=== PATIENT | female | born 1965 | race Caucasian/White ===

== ENCOUNTER 2016-12-20 08:25 | Inpatient (IN) | payer OTHER ==
[~2016-12-20] VITALS: Ht 157.5 cm; Wt 52.6 kg
[2016-12-20 10:10] LABS: microscopic required? NO
[2016-12-20 10:11] LABS: ALBUMIN 4.4 g/dL (3.4-5.0); ALKALINE PHOSPHATASE 82 U/L (46-116); ALT/SGPT 21 U/L (14-59); AMYLASE 45 U/L (25-115); AST/SGOT 17 U/L (15-37); BILIRUBIN TOTAL 0.6 mg/dL (0.20-1.00); CARBON DIOXIDE 27.4 mmol/L (21-32); CHLORIDE SERUM 103 mmol/L (98-107); CHOLESTEROL 196 mg/dL (<200); CREATININE SERUM 0.9 mg/dL (0.6-1.0); GFR1 > 60 mL/min; GLUCOSE SERUM 75 mg/dL (74-106); SODIUM SERUM 140 mmol/L (136-145); T4(THYROXINE) 7.8 ug/dL (4.7-13.3); TOTAL PROTEIN, SERUM 7.6 g/dL (6.4-8.2)
[2016-12-20 10:15] LABS: CALCIUM 9.7 mg/dL (8.5-10.1); HDL CHOLESTEROL 103 mg/dL (40-60); LIPASE 179 IU/L (73-393)
[2016-12-20 10:22] LABS: BASOPHIL % 0.4 % (0-2); PLATELET COUNT 261 x10^3mcL (130-400); RED CELL DISTRIBUTION WIDTH 13.3 % (11.5-14.5)
[2016-12-20 10:25] LABS: UA SPECIFIC GRAVITY 1.015 (1.005-1.035); urine erythrocyte NEGATIVE (NEGATIVE)
[2016-12-20 10:38] LABS: AMPHETAMINE QUAL UR NONE DETECTED (NEG <=1000)
[2016-12-20 14:09] LABS: MAGNESIUM 1.9 mg/dL (1.8-2.4)
[2016-12-20 14:19] LABS: T3 TOTAL 1.02 ng/mL
[2016-12-20 14:20] LABS: FREE T4 1.13 ng/dL (0.76-1.46); FREE THYROXINE INDEX 2.9 ug/dL (1.4-4.5); T4(THYROXINE) 7.6 ug/dL (4.7-13.3)
[2016-12-20] MEDS ORDERED: LISINOPRIL2.5 MG (15:28)
[2016-12-20] MEDS ORDERED: XANAX0.25 MG (15:28)
[2016-12-20 16:25] VITALS: BP 138/89
[2016-12-20 18:16] VITALS: BP 132/69
[2016-12-20 22:46] VITALS: BP 132/87
[2016-12-21 06:33] LABS: BASOPHIL % 0.6 % (0-2); PLATELET COUNT 224 x10^3mcL (130-400); RED CELL DISTRIBUTION WIDTH 13.5 % (11.5-14.5)
[2016-12-21 07:00] LABS: CALCIUM 8.6 mg/dL (8.5-10.1); CARBON DIOXIDE 32.1 mmol/L (21-32); CHLORIDE SERUM 106 mmol/L (98-107); CREATININE SERUM 0.7 mg/dL (0.6-1.0); GFR1 > 60 mL/min; GLUCOSE SERUM 94 mg/dL (74-106); MAGNESIUM 1.8 mg/dL (1.8-2.4); PHOSPHOROUS 4.2 mg/dL (2.5-4.9); SODIUM SERUM 140 mmol/L (136-145)
[2016-12-21 07:04] VITALS: BP 137/89
[2016-12-21 10:00] VITALS: BP 126/86
[2016-12-21 13:48] VITALS: BP 146/89
[2016-12-21 18:16] VITALS: BP 130/82
[2016-12-21 22:09] VITALS: BP 153/88
[2016-12-22 06:00] VITALS: BP 142/79
[2016-12-22] MEDS ORDERED: ZESTRIL20 MG PO (07:50)
[2016-12-22 09:09] VITALS: BP 147/95
[2016-12-22] MEDS ORDERED: METHOCARBAMOL500 MG PO (11:21)
[2016-12-22] MEDS ORDERED: ACETAMINOPHEN-H1 TA1 PO (11:22)
[2016-12-22 11:31] VITALS: BP 147/95
== END 2016-12-22 11:45 | disposition home or self-care (01) | DRG 74 ==
LOC: ED 08:25 → DU 13:21
PROVIDERS: Emergency Medicine; ADMIT Family Medicine
DX: G90.9 Disorder of the autonomic nervous system, unspecified (principal); M94.0 Chondrocostal junction syndrome [Tietze]; I10 Essential (primary) hypertension; F41.8 Other specified anxiety disorders; M50.322 Other cervical disc degeneration at C5-C6 level; Z68.21 Body mass index [BMI] 21.0-21.9, adult; F32.9 Major depressive disorder, single episode, unspecified
CPT/HCPCS: 83880; 84439; A9579; G0480; J7030; Q0092; Q9967